=== PATIENT | male | born 1990 | race Caucasian/White ===

== ENCOUNTER 2019-02-17 18:55 | Emergency (ER) | payer BC ==
[~2019-02-17] VITALS: Ht 167.6 cm; Wt 93.5 kg
[2019-02-17 19:11] VITALS: BP 123/67
--- NOTE | 2019-02-17 19:15 | NUR ---
TO LOBBY WITH VSS. ER AWARE OF PT STATUS.
--- NOTE | 2019-02-17 19:39 | NUR ---
PT RETURN FROM XRAY TO LOBBY
--- NOTE | 2019-02-17 19:54 | NUR ---
PT TAKEN TO BED 8
--- NOTE | 2019-02-17 19:55 | NUR ---
PATIENT PRESENTS TO ED WITH C/O RT HAND PAIN WITH INTERMITTENT CP X 1 DAY. PT STATES PAIN WILL START IN RIGHT HAND AND RADIATE UPWARDS UNTIL PAIN GETS TO HIS CHEST. DENIES ANY MEDICAL HISTORY, DENIES TRAUMA, AND DENIES SOB. DENIES N/V/D; SKIN IS PINK/WARM/DRY; AAOX4 WITH EVEN AND STEADY GAIT; LUNGS CLEAR BL; HR EVEN AND REGULAR; PATIENT STATES PAIN OF 9/10 AT THIS TIME; VSS; PATIENT POSITIONED FOR COMFORT; HOB ELEVATED; BEDRAILS UP X2; BED DOWN. ER MD MADE AWARE OF PT STATUS.
--- NOTE | 2019-02-17 20:49 | NUR ---
Dr. Eaton evaluating patient at bedside.
[2019-02-17] MEDS ORDERED: KETOROLAC 60 MG/2 ML VIAL IM ONE (20:55)
[2019-02-17 21:15] VITALS: BP 120/63
--- NOTE | 2019-02-17 21:15 | NUR ---
Patient discharged with v/s stable. Written and verbal after care instructions given and explained. Patient alert, oriented and verbalized understanding of instructions. Ambulatory with steady gait. All questions addressed prior to discharge. ID band removed. Patient advised to follow up with PMD. Rx of MOTRIN 800MG, NORCO 5MG-325MG given. Patient educated on indication of medication including possible reaction and side effects. Opportunity to ask questions provided and answered.
== END 2019-02-17 21:15 | disposition home or self-care (01) ==
LOC: MED 18:55
DX: M79.602 Pain in left arm (principal); R20.0 Anesthesia of skin
CPT/HCPCS: 71046; 96372; 99283; J1885